=== PATIENT | female | born 1990 | race Two or more races ===

== ENCOUNTER 2023-07-22 20:18 | Emergency (ER) | payer OTHER ==
[~2023-07-22] VITALS: Ht 167.6 cm; Wt 72.6 kg
[2023-07-22] MEDS ORDERED: KETOROLAC TROMETHAMINE 30 MG VIAL IM STA (20:49)
[2023-07-22] MEDS ORDERED: ORPHENADRINE CITRATE 30 MG/ML AMPUL IM STA (20:49)
== END 2023-07-22 21:49 | disposition home or self-care (01) ==
LOC: ER 20:18
DX: M54.9 Dorsalgia, unspecified (principal); Z88.8 Allergy status to other drugs, medicaments and biological substances; Z91.013 Allergy to seafood